=== PATIENT | male | born 1955 | race Caucasian/White ===

== ENCOUNTER 2018-03-26 17:11 | Inpatient (IN) | payer MEDICARE, OTHER ==
[~2018-03-26] VITALS: Ht 182.9 cm; Wt 101.2 kg
[2018-03-26 17:17] VITALS: BP 157/88
[2018-03-26] MEDS ORDERED: ATENOLOL 100MG100 MG PO (17:24)
[2018-03-26 17:59] LABS: HEMATOCRIT 48.3 % (42.0-52.0); HEMOGLOBIN 16.2 gm/dL (14.0-18.0); MCH 35.1 pg (26.0-34.0); MCHC 33.6 g/dL (28.0-37.0); MCV 104.5 fL (80.0-100.0); MPV 8.9 fl. (7.2-11.1); NUCLEATED RBCS 0 /100WBC; PLATELET COUNT* 98 thou/uL (150-400); RBC 4.62 mil/uL (4.50-6.00); WBC 5.4 thou/uL (4.0-11.0)
[2018-03-26 18:07] LABS: INR 1.5; PROTIME 14.5 Seconds (9.20-11.50)
[2018-03-26 18:29] LABS: ABSOLUTE BASOPHILS 0.1 thou/uL (0.0-0.2); ABSOLUTE LYMPHOCYTES 0.5 thou/uL (0.8-5.3); ABSOLUTE MONOCYTES 0.4 thou/uL (0.0-1.2); ABSOLUTE NEUTROPHILS 4.4 thou/uL (1.6-8.1)
[2018-03-26 18:31] LABS: PLATELET ESTIMATE DECREASED
[2018-03-26 18:32] LABS: MACROCYTES 1+
[2018-03-26 18:52] LABS: CALCIUM 8.7 mg/dL (8.5-10.1); CREATININE 0.8 mg/dL (0.6-1.3); POTASSIUM 3.9 mmol/L (3.5-5.1)
[2018-03-26 19:03] LABS: ALBUMIN 2.8 g/dL (3.4-5.0); TOTAL BILIRUBIN 4.2 mg/dL (<0.1-1.0); TOTAL PROTEIN 7.8 g/dL (6.4-8.2)
[2018-03-26 20:10] VITALS: BP 130/61
[2018-03-26 22:00] VITALS: BP 133/73
--- NOTE | 2018-03-26 22:00 | NUR ---
ADMIT NOTE: PT TO ROOM WITH DAUGHTER AT BEDSIDE. PAIN NOTED IN BILAT LE. 2-3+ EDEMA, REDNESS, AND BLISTERS/OOZING NOTED IN BILAT LE. PICTURES TAKEN FOR CHART. OTHER COMPLAINTS NOTED ARE ABD PAIN, EPIGASTRIC AND RIGHT AND LEFT UPPER QUADRANTS PT STATES IS WORSE WHEN EATING. IRREGULAR HR, SA WITH PAC'S AND PVC'S ON MONITOR. VSS. JAUNDICED SKIN. ABD IS FIRM AND DISTENDED. WILL CONT TO MONITOR.
[2018-03-27] VITALS: BP 104/67
[2018-03-27 04:00] VITALS: BP 109/69
--- NOTE | 2018-03-27 04:09 | NUR ---
END SHIFT: PT RESTED WELL. REQUIRED IV PAIN MEDICATION FOR PAIN CONTROL IN BILAT LE AND ABD. IVF INFUSING WITHOUT DIFFICULTY. ASSESSMENT UNCHANGED. VSS. SAFETY PRECAUTIONS IN PLACE. CALL LIGHT IN REACH. PERFORMED HOURLY ROUNDING. WILL CONT TO MONITOR.
[2018-03-27 08:40] VITALS: BP 117/73
--- NOTE | 2018-03-27 09:27 | NUR ---
ASSUMED CARE OF PT THIS AM AROUND 07- ASSISTANT FEDERAL PUBLIC DEFENDER IN PLACE ORDERED, TRACING SR WITH PAC'S THIS AM- UPON ASSESSMENT PT NOTED TO BE RESTING IN BED, EYES CLOSED, BUT ARROUSABLE- PT A&O X4- CONTINENT OF BOWEL AND BLADDER- EXT ASSIST WITH TRANSFERS- EXPIRATORY WHEEZING NOTED- RESP EVEN AND UN-LABORED- VSS, O2 SAT 98% ON RA-ABDOMEN FIRM/ROUND/DISTENDED WITH REPORTS OF DISCOMFORT- IV NOTED TO LEFT AC INTACT, IVF INFUSING PRESCIBED- 2-3+ BLE EDEMA NOTED- REDNESS NOTED WITH WARMTH TO RLE- PT TAKEN FOR US OF BLE THIS AM, AWAITTING RESULTS- PT CURRENTLY NPO PENDING TESTING POSSIBILTIY- PT RATES PAIN 6/10 WITH MOVEMENT TO BLE, CONTROLLED WITH PRN MORPHINE- CALL LIGHT AND PERSONAL BELONGINGS WITH IN REACH- HOURLY ROUNDS IN PLACE R/T SAFETY/NEEDS- ALL NEEDS MET AT THIS TIME-WCTM
--- NOTE | 2018-03-27 11:00 | NUR ---
MET WITH PT TO DISCUSS HOME SITUATION/DC PLANNING. PT LIVES ALONE. HAS DTR WHO CHECKS ON HIM REGULARLY. PT REPORTS HAVING MULTIPLE SURGERIES ON BOTH LEGS AND KNEES AND STATES HAS BEEN DISABLED FOR ABOUT 2YRS. HE HAS EQUIPMENT AT HOME AND USES NEEDED: CANE, CRUTCHES, WALKER AND W/C. HE DRIVES. HIS BROTHER SARAN CELESTIN IS HIS DPOA. TALKED WITH PT ABOUT HIS ETOH USE, HE DENIES REGULAR DRINKING AND STATED HE ONLY DRINKS ON SAT AND SUN AND STATES 'NOT THAT MUCH.' HE DENIES THAT IT IS AN ISSUE FOR HIM AND DIDN'T APPEAR TO WANT TO DISCUS FURTHER. PT DENIES EVER HAVING HH OR SNF. WILL FOLLOW
[2018-03-27 11:28] LABS: % SATURATION 63 % (20-39); IRON 182 ug/dL (50-175)
[2018-03-27 16:21] VITALS: BP 137/86
--- NOTE | 2018-03-27 16:39 | NUR ---
PT LIA RESTING IN BED WATCHING TV- IV TO LEFT AC INTACT AND SL, IVF D/C'D THIS AM- ABD US COMPLETED THIS SHIFT ORDERED, RESULTS COMMUNICATED TO THROUGH [employer], NO NEW ORDERS NOTED- GOOD PO INTAKE NOTED THIS SHIFT- SPIRONOLACTONE STARTED AND GIVEN THIS AM- CALL LIGHT AND PERSONAL BELONGINGS WITH IN REACH- HOURLY ROUNDS IN PLACE R/T SAFETY/NEEDS- ALL NEEDS MET AT THIS TIME-WCTM
[2018-03-27 20:00] VITALS: BP 120/74
[2018-03-28] VITALS: BP 127/78
--- NOTE | 2018-03-28 01:42 | NUR ---
PT ALERT ORIENTED. STEPHAN LEG EDEMA. R LEG EDEMA> L. R LEG CELLULITIS RED WARM. MORPHINE IVP GIVEN ONCE FOR PAIN. TELEMETRY SHOWS A FIB. WILL CONTINUE TO MONITOR.
[2018-03-28 02:07] LABS: HEPATITIS B SURFACE AG Negative (Negative)
[2018-03-28 04:00] VITALS: BP 141/81
[2018-03-28 07:58] VITALS: BP 119/68
--- NOTE | 2018-03-28 09:22 | NUR ---
ASSUMED CARE OF PT THIS AM AROUND 0715- BUSINESS TAXES SPECIALIST IN PLACE ORDERED, TRACING A-FIB WITH PAC'S THIS AM- UPON ASSESSMENT PT NOTED TO BE RESTING IN BED, WATCHING TV- PT A&O X4- CONTINENT OF BOWEL AND BLADDER, USING URINAL AT BEDSIDE- EXT ASSIST WITH TRANSFERS- LCTA, DIMINISHED IN BASES- RESP EVEN AND UN-LABORED- VSS, O2 SAT 98% ON RA- ABDOMEN FIRM/DISTENDED, WITH ASITIES- BS ACTIVE- LAST BM REPORTED 03/26-18- 2-3+ BLE EDEAM NOTED- REDNESS TO RLE WITH WARMTH, IV VANC PRESCIBED R/T CELLULITIS- IV NOTED TO LEFT AC INTACT AND SL- PT C/O PAIN 04/15 TO BLE, PRN MORPHINE GIVEN THIS AM AT 0832- PT REPORTS MEDICATION TO BE EFFECTIVE- PT UP SITTING ON SIDE OF BED THIS AM WITH BREAKFAST, GOOD PO INTAKE NOTED- CALL LIGHT AND PERSONAL BELONGINGS WITH IN REACH- HOURLY ROUNDS IN PLACE R/T SAFETY/NEEDS- ALL NEEDS MET AT THIS TIME-WCTM
[2018-03-28 11:35] VITALS: BP 117/69
--- NOTE | 2018-03-28 12:33 | EKG ---
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: [place] : 1955 Requested By: Hugh Hawthorne Order Number: [id number] MD: Angelito Coyne Measurements Intervals [place] Rate: 91 P: [place]: QRS: 30 QRSD: 121 T: QT: 375 QTc: 462 Interpretive Statements Atrial fibrillation artifact noted Nonspecific intraventricular conduction delay No previous ECG available for comparison Electronically Signed On 03-28-2018 12:32:51 CDT by Angelito Coyne [email or web address] <ELECTRONICALLY SIGNED> By: Angelito Coyne MD, [facility] 03/28/18 1232 D: 06/1855 57 Angelito Coyne MD, FACC /EPI
--- NOTE | 2018-03-28 12:33 | EKG ---
[place] [address] ELECTROCARDIOGRAM REPORT Name: ANTONIO CELESTIN Room: [address] ADM IN M.R.#: [id number] Admission: 03/26/18 Attend Phys: Raji Michel Discharge: Date of : 57 Report #: [id number] THIS REPORT FOR: //name// [facility] ED Test Date: 2018-03-26 Test Time: 18:59:53 Pat Name: ANTONIO CELESTIN Department: Room: [address] Gender: M Identification Technician: CHEMA : 1955 Requested By: Abhi Mccormick Order Number: [id number] MD: Angelito Coyne Measurements Intervals [place] Rate: 89 P: [place]: QRS: 21 QRSD: 116 T: 17 QT: 357 QTc: 435 Interpretive Statements Atrial fibrillation Ventricular premature complex artifact noted nonspecific st changes Electronically Signed On 03-28-2018 12:33:47 CDT by Angelito Coyne [email or web address] <ELECTRONICALLY SIGNED> By: Angelito Coyne MD, [facility] 03/28/18 1233 1859 1859 Angelito Coyne MD, FACC /EPI
--- NOTE | 2018-03-28 15:00 | NUR ---
CONTINUE TO FOLLOW, PT STATES SOME BETTER TODAY. USING CANE IN ROOM. PT AGAIN STATES HE HAS SUPPORT AT HOME AND IS NOT INTERESTED IN HH. HE IS FOCUSED ON GETTING BACK TO [employer] WHERE HIS ORTHO SURGEON IS AND GETTING HIS LEFT KNEE LOOKED AT. RIGHT KNEE STILL VERY EDEMATOUS AND RED. PT ANXIOUS TO TALK WITH DR ABOUT 'WHAT'S GOING ON.'
--- NOTE | 2018-03-28 18:27 | NUR ---
PT KADIY RESTING IN BED- SENIOR CYTOGENETICS LABORATORY DIRECTOR IN PLACE ORDERED, TRACING A-FIB- IV TO LEFT AC INTACT AND SL-IV VANC GIVEN THIS SHIFT PRESCIBED- GI CONSULTED PER THIS SHIFT- PARACENTESIS COMPLETED THIS SHIFT WITH 9.5L REPORTED TO HAVE BEEN REMOVED AND SENT FOR LAB TESTING INDICATED- BANDAGE TO RL ABDOMEN NOTED TO SATURATED WITH NOTED CONTINUED DRAINAGE TO SITE- AREA CLEANED WITH ABD PAD AND FOAM TAPE REAPPLIED TO AREA-PT REPORTS RELIEF POST PARACENTESIS- UPON RETURNING AFTER PARACENTESIS PT EXPRESSESS WISHES TO LEAVE, BUT AFTER EDUCATION GIVEN PER THIS NURSE HE AGRESS WITH NEED TO STAT AND IS COMPLIANT WITH CARES AT THIS TIME-PRN MORPHINE GIVEN X3 THIS SHIFT PER PT REQUEST R/T PAIN TO BLE, PT REPORTS MEDICATION TO BE EFFECTIVE- CALL LIGHT AND PERSONAL BELONGINGS WITH IN REACH- ALL NEEDS MET AT THIS TIME-WCTM
[2018-03-28 19:56] LABS: BF RBC <1000 /mm3
[2018-03-28 20:00] VITALS: BP 122/59
[2018-03-28 20:01] LABS: CLARITY CLOUDY; COLOR AMBER; TOTAL VOLUME 9500 ml
[2018-03-28 20:19] LABS: BF WBC 164 /mm3; SOURCE ASCITES
[2018-03-28 20:22] LABS: BF LYMPHOCYTES 95 %; BF OTHER CYTO TO FOLLOW; BF POLYS 5 %
[2018-03-29] VITALS: BP 95/60
[2018-03-29 04:00] VITALS: BP 92/44
--- NOTE | 2018-03-29 04:41 | NUR ---
ASSUMED PT CARE AT 1930, PT IS A&OX4, TRACING AFIB ON THE MONITOR, ON RA SATTING MID TO HIGH 90'S. PT STATES THAT HE WANTS TO LEAVE NOW THAT HE "FEELS BETTER" PT GIVEN EDUCATION ON NEED TO STAY AND GET ABX. PT STATES UNDERSTANDING, BUT WILL STILL TALK ABOUT "LEAVING BY 10 AM" PT ASKED TO "GO FOR A WALK" STATING THAT HE WANTED TO WALK TO HIS CAR TO GO SMOKE.THIS RN TOLD THE PT THAT IS NOT AN OPTION, AND WE ARE A NO SMOKING FACILITY. PT STATES THAT HIS PREVIOUS NURSE FROM SATURDAY ALLOWED HIM TO DO THIS AND HE IS VERY UPSET THAT "WE ALL DO NOT FOLLOW THE SAME RULES" PT REFUSED TO GIVE RN HIS CIGARETTS WELL HIS POCKET KNIFE. PT REFUSES TO ALLOW THIS RN TO PUT HIS BED ALARM ON. VERBAL EDUCATION GIVEN ON SAFETY AND FALL PRECAUTIONS. PT HAD A PARACENTESIS TO RLQ OF ABD. SITE IS STILL DRAINING YELLOW FLUID. PT HAD SATURATED ONE DRESSING THIS SHIFT. BED IN LOW POSITION, CALL LIGHT IN REACH, HOURLY ROUNDING COMPLETED FOR PT SAFETY.
--- NOTE | 2018-03-29 09:06 | NUR ---
ASSUMED PT CARE AT 0700 PT IS ALERT AND ORIENTED X 4 PT REFUSED ALL CARE INCLUDING VITALS ASSESSMENT AND MEDICATATIONS, PT STATES HE IS LEAVING NO MATTER WHAT AGREES TO SIGN OUT AGAINST MEDICAL ADVICE THIS NURSE EDUCATED PT ON THE IMPOTANCE OF STAYING AND RECEIVING ANTIBIOTICS PT STATES UNDERSTANDING STILL WANTS TO LEAVE PT C/O PAIN WANTS PAIN MEDS THIS NURSE EDUCATED THAT PT CAN NOT RECEIVE IV PAIN MEDS AND THEN LEAVE THIS NURSE PAGED PHYSICIAN TO NOTIFY ABOUT PT LEAVING AND ONE TIME DOSE OF PO PAIN MEDS AWAITING CALL BACK, PT SIGNED AMA FORM IV REMOVED AND PT LEFT AROUND 0905
[2018-03-30 03:10] LABS: BODY FLUID LDH 62 IU/L (()); BODY FLUID PROTEIN 1.9 g/dL (())
--- NOTE | 2018-04-08 10:08 | PATH ---
[address] [address] PATHOLOGY RPT PROCEDURE Name: ANTONIO CELESTIN Room: [address]#: [id number] Admission: 03/26/18 Date of : 57 Discharge: 03/29/18 Report #: [id number] Path Case #: [id number] Note [facility] Accession Number: [id number] TESTS RESULT FLAG UNITS REF RANGE LAB Clinician Provided Cytology Information No. of containers..01 Other (Miscellaneous) Source: ASCITES DIAGNOSIS: 02 ASCITES NEGATIVE FOR MALIGNANT CELLS. MESOTHELIAL CELLS ARE PRESENT. THIS INTERPRETATION INCLUDES EVALUATION OF A CELL BLOCK. Signed out by: 02 Leonard Wooten MD, Pathologist NPI- [id number] Performed by: 02 Halie Farias, Male Model ([facility]) Gross description: 01 60ML, YELLOW, CLOUDY /LCS FLAG LEGEND: L-Low Normal,H-High Normal,LL-Alert Low,HH-Alert High <-Panic Low,>-Panic High,A-Abnormal,AA-Critical Abnormal Performed at: [address] [place] [address] Nayan Remy MD, [address] [place] [id number] Dipesh Waller MD, A duplicate report has been generated due to demographic updates. Performed at: [address] [place] [id number] MD Nayan Remy MD Phone: [phone]
== END 2018-03-29 09:05 | disposition left against medical advice (07) | DRG 432 ==
LOC: M.ERS 17:11 → M.TBA-ER 18:50 → M.2W 18:50
PROVIDERS: Family Medicine; Internal Medicine; Nurse Practitioner Family; ADMIT Internal Medicine
PROC: 0W9G3ZX Drainage of Peritoneal Cavity, Percutaneous Approach, Diagnostic (ICD-10-PCS; principal; 2018-03-28)
DX: K70.30 Alcoholic cirrhosis of liver without ascites (principal); R65.11 Systemic inflammatory response syndrome (SIRS) of non-infectious origin with acute organ dysfunction; L03.116 Cellulitis of left lower limb; L03.115 Cellulitis of right lower limb; E44.1 Mild protein-calorie malnutrition; B18.2 Chronic viral hepatitis C; I48.91 Unspecified atrial fibrillation; D69.6 Thrombocytopenia, unspecified; F10.10 Alcohol abuse, uncomplicated; I10 Essential (primary) hypertension; Z53.21 Procedure and treatment not carried out due to patient leaving prior to being seen by health care provider; F17.210 Nicotine dependence, cigarettes, uncomplicated; Z68.30 Body mass index [BMI] 30.0-30.9, adult; Z79.01 Long term (current) use of anticoagulants; Z91.14 Patient's other noncompliance with medication regimen; Z79.2 Long term (current) use of antibiotics; Z79.899 Other long term (current) drug therapy

== ENCOUNTER 2018-04-02 13:12 | Emergency (ER) | payer MEDICARE, OTHER ==
[~2018-04-02] VITALS: Ht 182.9 cm; Wt 99.3 kg
[~2018-04-02 13:12] MED LIST: ATENOLOL 100MG100 MG PO
[2018-04-02 13:40] LABS: ABSOLUTE LYMPHOCYTES 0.7 thou/uL (0.8-5.3); ABSOLUTE MONOCYTES 0.5 thou/uL (0.0-1.2); ABSOLUTE NEUTROPHILS 2.6 thou/uL (1.6-8.1); BASOPHILS 0.3 %; EOSINOPHILS 0.4 %; HEMATOCRIT 44.8 % (42.0-52.0); HEMOGLOBIN 14.9 gm/dL (14.0-18.0); LYMPHOCYTES 18.1 %; MCH 34.7 pg (26.0-34.0); MCHC 33.3 g/dL (28.0-37.0); MONOCYTES 12.4 %; NUCLEATED RBCS 0 /100WBC; PLATELET COUNT* 104 thou/uL (150-400); POLYS 68.8 %; RBC 4.31 mil/uL (4.50-6.00); RDW-CV 16.4 % (10.5-14.5); WBC 3.7 thou/uL (4.0-11.0)
[2018-04-02 13:51] LABS: CALCIUM 8.2 mg/dL (8.5-10.1); CREATININE 0.8 mg/dL (0.6-1.3); POTASSIUM 4.4 mmol/L (3.5-5.1)
[2018-04-02 13:54] LABS: APTT 29.4 Seconds (25.0-31.3); INR 1.6; PROTIME 15.4 Seconds (9.20-11.50)
[2018-04-02 13:55] LABS: ALBUMIN 2.3 g/dL (3.4-5.0); TOTAL BILIRUBIN 2.8 mg/dL (<0.1-1.0); TOTAL PROTEIN 6.7 g/dL (6.4-8.2)
[2018-04-02 14:16] VITALS: BP 116/67
== END 2018-04-02 14:17 | disposition home or self-care (01) ==
LOC: M.ERS 13:12
PROVIDERS: Emergency Medicine Emergency Medical Services
DX: K91.89 Other postprocedural complications and disorders of digestive system (principal); R18.8 Other ascites; I48.91 Unspecified atrial fibrillation; F17.210 Nicotine dependence, cigarettes, uncomplicated

== ENCOUNTER 2021-08-29 17:39 | Emergency (ER) | payer MEDICARE, OTHER ==
[~2021-08-29] VITALS: Ht 182.9 cm; Wt 97.5 kg
[2021-08-29 17:50] VITALS: BP 134/47
== END 2021-08-29 18:27 | disposition home or self-care (01) ==
LOC: M.ERS 17:39
DX: T16.2XXA Foreign body in left ear, initial encounter (principal); I48.91 Unspecified atrial fibrillation; F17.210 Nicotine dependence, cigarettes, uncomplicated; Z98.890 Other specified postprocedural states; Z79.899 Other long term (current) drug therapy; X58.XXXA Exposure to other specified factors, initial encounter; Y93.89 Activity, other specified; Y92.89 Other specified places as the place of occurrence of the external cause; Y99.8 Other external cause status